=== PATIENT | male | born 1945 | race Caucasian/White ===

== ENCOUNTER 2017-11-06 15:09 | Emergency (ER) | payer MEDICARE, OTHER ==
[2017-11-06] MEDS ORDERED: BACIGUENT PACKET ONE (15:37)
[2017-11-06] MEDS ORDERED: XYLOCAINE 4% TOPICAL SOLUTION 50 ML TOP ONE (15:37)
[2017-11-06] MEDS ORDERED: ARZOL Silver Nitrate Applicator TP ONE ×2 (15:37→15:38)
[2017-11-06] MEDS ORDERED: NEOSYNEPHRINE 0.5% NASAL SPRAY/DROPS NS ONE (15:37)
[2017-11-06] MEDS ORDERED: NEOSYNEPHRINE 0.5% NASAL SPRAY/DROPS ONE (15:37)
[2017-11-06] MEDS ORDERED: XYLOCAINE 4% TOPICAL SOLUTION 50 ML ONE (15:40)
[2017-11-06] MEDS ORDERED: Sodium Chloride 0.9% 1000 ML 1,000 ML ONE (15:54)
[2017-11-06 16:02] LABS: BASOPHIL % 0.5 % (0.0-0.4); Basophil (Absolute #) 0.04 (0-0.4); Eosinophil % 2.1 % (0.00-5.0); Eosinophil (Absolute #) 0.17 (0-0.5); Granulocyte Absolute (ANC) 6.39 (1.4-6.9); Hematocrit 32.7 % (42-50); Hemoglobin 10.7 gm/dl (12.5-18.0); Lymphocyte (Absolute #) 1.02 (1.0-4.6); Lymphocytes % 12.6 % (24.0-44.0); Mean Cell Volume 99.7 fl (78-100); Mean Corpuscular Hemoglobin 32.6 pg (26-32); Mean Corpuscular Hgb Concent. 32.7 g/dl (32-36); Mean Platelet Volume 10.3 fl (6-9.5); Monocyte (Absolute #) 0.47 (0.0-1.3); Monocytes % 5.8 % (0.0-12.0); Platelet Count 290 K/mm3 (150-450); Red Blood Count 3.28 M/mm3 (4.1-5.6); Red Cell Distribution Width 13.3 % (11.5-14.0); White Blood Count 8.1 K/mm3 (4.0-10.5)
[2017-11-06 16:08] VITALS: O2SAT 98
[2017-11-06 16:16] LABS: ANION GAP 14.1 MEQ/L (5-15); Calcium 8.4 mg/dL (8.5-10.1); Carbon Dioxide 25.5 mEq/L (21-32); Creatinine 1 1.27 mg/dl (0.55-1.30); Potassium 4.7 mEq/L (3.5-5.1)
[2017-11-06 16:21] LABS: INR 1.18 (0.8-3.0)
[2017-11-06 16:23] LABS: PTT 28.5 SECONDS (24.1-36.1)
[2017-11-06 16:53] VITALS: BP 120/74; PULSE 66
--- NOTE | 2017-11-06 17:07 | ERPHSYRPT ---
- History of Present Illness Time Seen by Provider: 11/06/17 15:28 Source: patient, family () Patient Subjective Stated Complaint: nose bleed started at 1030 today. skin w/d , color normal, resp easy. states bleeding had stopped at one time and then started again. takes blood thinners at home Triage Nursing Assessment: arrives holding pressure to right side of nose. skin w/d, color normal, resp easy. steady small amt bleedign of nose noted from right nares. Physician History: CC: right nosebleed Hx: 72 y/o patient of Dr Gonsalez on plavix. He has right nostril nosebleed since 10:30 AM. No hx of this in the past. No injury. He could not get it to stop and it is going down back of his nose. No dizziness. No chest pain. Severity: moderate Allergies/Adverse Reactions: No Known Drug Allergies Allergy (Verified 11/06/17 16:08) Home Medications: Aspirin EC 325 mg [Ecotrin 325 MG] 81 mg PO DAILY 10/08/14 [History] Atorvastatin Calcium 20 mg PO DAILY 10/08/14 [History] Lisinopril [Zestril] 2.5 mg PO DAILY 10/08/14 [History] Clopidogrel Bisulfate 75 mg [PLAVIX 75 MG Tablet] 75 mg PO DAILY 11/06/17 [History] Hx Tetanus, Diphtheria Vaccination/Date Given: No Hx Influenza Vaccination/Date Given: Yes Hx Pneumococcal Vaccination/Date Given: No - Review of Systems Constitutional: No Symptoms Ears, Nose, & Throat: Epistaxis Respiratory: No Cough, No Dyspnea Abdominal/Gastrointestinal: No Vomiting, No Diarrhea Skin: No Rash Neurological: No Headache All Other Systems: Reviewed and Negative - Past Medical History Pertinent Past Medical History: Yes Neurological History: No Pertinent History ENT History: Other Cardiac History: Angina, Hypertension, Other Respiratory History: No Pertinent History Endocrine Medical History: No Pertinent History Musculoskeletal History: Arthritis GI Medical History: No Pertinent History History: No Pertinent History Psycho-Social History: No Pertinent History Male Reproductive Disorders: Prostate Problems Other Medical History: Menieres Disease. Enlarged prostate - Past Surgical History Past Surgical History: Yes Neuro Surgical History: No Pertinent History Cardiac: Cardiac Catheterization, Cardiac Stent Respiratory: No Pertinent History Gastrointestinal: No Pertinent History Genitourinary: No Pertinent History Musculoskeletal: No Pertinent History Male Surgical History: No Pertinent History Other Surgical History: Cardiac stents placed in 2002 - Social History Smoking Status: Never smoker Exposure to second hand smoke: No Drug Use: none Patient Lives Alone: No - Nursing Vital Signs Nursing Vital Signs: Initial Vital Signs Temperature 97.5 F 11/06/17 15:49 Pulse Rate 65 11/06/17 15:49 Respiratory Rate 18 11/06/17 15:49 Blood Pressure 121/78 11/06/17 15:49 O2 Sat by Pulse Oximetry 98 11/06/17 15:49 Pain Scale Pain Intensity 0 - Physical Exam General Appearance: alert Eye Exam: bilateral eye: PERRL, EOMI Neck Exam: normal inspection, non-tender, supple Cardiovascular/Respiratory Exam: normal breath sounds, regular rate/rhythm Neurologic Exam: alert, oriented x 3, 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 It was blown and suctioned. Neosynephrine and lidocaine applied topically with lambs wool. There was large clot in posterior which he coughed out. Residual bleeding. No anterior bleeding noted on direct visualization. 7.5cm AP rapid rhino inserted and balloon inflated. There was cessation of bleeding and no further blood down throat. Will release with nosebleed instr. - Course Nursing assessment & vital signs reviewed: Yes Ordered Tests: Active Orders 24 hr Category Date Time Status Epistaxis Set Up STAT Care 11/06/17 15:37 Active IV Insertion STAT Care 11/06/17 15:37 Active BMP Stat Lab 11/06/17 16:00 Completed CBC W DIFF Stat Lab 11/06/17 16:00 Completed PROTIME WITH INR Stat Lab 11/06/17 16:00 Completed PTT Stat Lab 11/06/17 16:00 Completed Medication Summary Discontinued Medications Generic Name Dose Route Start Last Admin Trade Name Freq PRN Reason Stop Dose Admin Bacitracin Confirm 11/06/17 15:37 Baciguent Packet Administered 11/06/17 15:38 Dose 1 gm .ROUTE .STK-MED ONE Sodium Chloride Confirm 11/06/17 15:54 Sodium Chloride 0.9% 1000 Ml Administered 11/06/17 15:55 Dose 1,000 mls @ ud .ROUTE .STK-MED ONE Lidocaine HCl 10 ml 11/06/17 15:37 11/06/17 16:17 Xylocaine 4% Topical Solution 50 Ml TOP 11/06/17 15:38 10 ml STAT ONE Administration Lidocaine HCl Confirm 11/06/17 15:40 Xylocaine 4% Topical Solution 50 Ml Administered 11/06/17 15:41 Dose 1 ml .ROUTE .STK-MED ONE Phenylephrine HCl 15 ml 11/06/17 15:37 11/06/17 16:16 Neosynephrine 0.5% Nasal [place]/Drops NS 11/06/17 15:38 15 ml STAT ONE Administration Phenylephrine HCl Confirm 11/06/17 15:37 Neosynephrine 0.5% Nasal [place]/Drops Administered 11/06/17 15:38 Dose 15 ml .ROUTE .STK-MED ONE Silver Nitrate 1 pkt 11/06/17 15:37 11/06/17 16:16 Arzol Silver Nitrate Applicator TP 11/06/17 15:38 Not Given STAT ONE Silver Nitrate Confirm 11/06/17 15:38 Arzol Silver Nitrate Applicator Administered 11/06/17 15:39 Dose 1 pkt TP .STK-MED ONE Lab/Rad Data: Laboratory Result Diagrams 11/06/17 16:00 11/06/17 16:00 Laboratory Results 11/06/17 11/06/17 11/06/17 Range/Units 16:00 16:00 16:00 WBC 8.1 (4.0-10.5) K/mm3 RBC 3.28 L (4.1-5.6) M/mm3 Hgb 10.7 L (12.5-18.0) gm/dl Hct 32.7 L (42-50) % MCV 99.7 (78-100) fl MCH 32.6 H (26-32) pg MCHC 32.7 (32-36) g/dl RDW 13.3 (11.5-14.0) % Plt Count 290 (150-450) K/mm3 MPV 10.3 H (6-9.5) fl Gran % 79.0 H (36.0-66.0) % Lymphocytes % 12.6 L (24.0-44.0) % Monocytes % 5.8 (0.0-12.0) % Eosinophils % 2.1 (0.00-5.0) % Basophils % 0.5 (0.0-0.4) % Basophils # 0.04 (0-0.4) INR 1.18 (0.8-3.0) APTT 28.5 (24.1-36.1) SECONDS Sodium 139 (136-145) mEq/L Potassium 4.7 (3.5-5.1) mEq/L Chloride 104 (98-107) mEq/L Carbon Dioxide 25.5 (21-32) mEq/L Anion Gap 14.1 (5-15) MEQ/L BUN 29 H (9-20) mg/dL Creatinine 1.27 (0.55-1.30) mg/dl Estimated GFR 59 ML/MIN Glucose 140 H (70-110) MG/DL Calcium 8.4 L (8.5-10.1) mg/dL - Departure Time of Disposition: 17:05 Departure Disposition: Home Clinical Impression: Posterior epistaxis Condition: Stable Critical Care Time: No Referrals: JAISON GONSALEZ MD [Primary Care Provider] - Instructions: Nosebleeds (DC) Additional Instructions: Call to see Dr Gonsalez or ENT or Sunday. Do not blow nose. Tylenol as directed for discomfort. Rx ceftin. Return for problems or concerns. Do not blow nose. Prescriptions: Cefuroxime Axetil 500 mg [Ceftin 500 mg] 1 tab PO BID #14 tablet
[2017-11-06 18:56] LABS: ABO TYPING O; RH TYPING POSITIVE
[2017-11-06 22:40] LABS: Antibody Screen POSITIVE (NEGATIVE)
== END 2017-11-06 17:13 | disposition home or self-care (01) ==
LOC: ED 15:09
DX: R04.0 Epistaxis (principal); I10 Essential (primary) hypertension; H81.09 Meniere's disease, unspecified ear; N40.0 Benign prostatic hyperplasia without lower urinary tract symptoms; Z79.899 Other long term (current) drug therapy
CPT/HCPCS: 36000; 36415; 80048; 85025; 85610; 85730; 86850; 86900; 86901; 99284; A9270-GY

== ENCOUNTER 2020-12-27 22:12 | Emergency (ER) | payer MEDICARE, OTHER ==
[2020-12-27] MEDS ORDERED: Zofran 4 MG/2 ML VIAL IV ONE (22:26)
[2020-12-27] MEDS ORDERED: Hydromorphone 1 mg/ml Injection IV ONE ×2 (22:26→23:11)
--- NOTE | 2020-12-27 22:26 | ERPHSYRPT ---
- History of Present Illness Time Seen by Provider: 12/27/20 22:25 Historian: patient, family Exam Limitations: clinical condition Physician History: This is a 75-year-old white male with a history of coronary artery disease, cardiac stents and pulmonary fibrosis who is experiencing right flank and right lower quadrant abdominal pain that began suddenly approximately 2 hours prior to arrival. Patient has never had a thing like this before. He is no longer on anticoagulation therapy. Patient is nauseated but has not had any vomiting. He has no diarrhea. He denies chest pain he denies shortness of breath. Patient has no known history of kidney stones or ureteral stones Timing/Duration: today, hour(s) (2 hours prior to arrival) Activities at Onset: none Quality: sharpness, stabbing Abdominal Pain Onset Location: flank (right) Pain Radiation: RLQ Severity of Pain-Max: moderate Severity of Pain-Current: moderate Modifying Factors: Improves With: nothing Associated Symptoms: denies symptoms Previous symptoms: no prior history Allergies/Adverse Reactions: No Known Drug Allergies Allergy (Verified 12/27/20 22:17) Home Medications: Atorvastatin Calcium 10 mg PO DAILY 10/08/14 [History] Albuterol Sulfate [Proair Respiclick] 90 mcg IH Q6H 12/27/20 [History] Aspirin 81 mg PO BID 12/27/20 [History] Furosemide [Lasix] 20 mg PO 12/27/20 [History] Nintedanib Esylate [Ofev] 150 mg PO DAILY 12/27/20 [History] Sacubitril/Valsartan [Entresto 49 mg-51 mg Tablet] 1 each PO BID 12/27/20 [History] predniSONE [Prednisone] 10 mg PO 12/27/20 [History] Hx Tetanus, Diphtheria Vaccination/Date Given: No Hx Influenza Vaccination/Date Given: Yes Hx Pneumococcal Vaccination/Date Given: No Travel Risk - International Travel Have you traveled outside of the country in past 3 weeks: No - Coronavirus Screening Are you exhibiting any of the following symptoms?: No Close contact with a COVID-19 positive Pt in past 14-21 Days: No - Vaccine Status Have you recieved a Covid-19 vaccination: No - Review of Systems Constitutional: No Symptoms Eyes: No Symptoms Ears, Nose, & Throat: No Symptoms Respiratory: No Symptoms Cardiac: No Symptoms Abdominal/Gastrointestinal: Abdominal Pain (rlq) Genitourinary Symptoms: Flank Pain (right) Musculoskeletal: No Symptoms Skin: No Symptoms Neurological: No Symptoms Psychological: No Symptoms Endocrine: No Symptoms Hematologic/Lymphatic: No Symptoms Immunological/Allergic: No Symptoms All Other Systems: Reviewed and Negative - Past Medical History Pertinent Past Medical History: Yes Neurological History: No Pertinent History ENT History: Other Cardiac History: Angina, Hypertension, Other Respiratory History: No Pertinent History Endocrine Medical History: No Pertinent History Musculoskeletal History: Arthritis GI Medical History: No Pertinent History History: No Pertinent History Psycho-Social History: No Pertinent History Male Reproductive Disorders: Prostate Problems Other Medical History: Menieres Disease. Enlarged prostate - Past Surgical History Past Surgical History: Yes Neuro Surgical History: No Pertinent History Cardiac: Cardiac Catheterization, Cardiac Stent Respiratory: No Pertinent History Gastrointestinal: No Pertinent History Genitourinary: No Pertinent History Musculoskeletal: No Pertinent History Male Surgical History: No Pertinent History Other Surgical History: Cardiac stents placed in 2001 - Social History Smoking Status: Never smoker Exposure to second hand smoke: No Drug Use: none Patient Lives Alone: No - Nursing Vital Signs Nursing Vital Signs: Initial Vital Signs Temperature 96.5 F 12/27/20 22:22 Pulse Rate 74 12/27/20 22:22 Respiratory Rate 26 H 12/27/20 22:22 Blood Pressure 144/85 12/27/20 22:22 O2 Sat by Pulse Oximetry 96 12/27/20 22:22 Pain Scale Pain Intensity 8 - Physical Exam General Appearance: moderate distress, alert, anxiety, thin Eye Exam: PERRL/EOMI, eyes nml inspection Ears, Nose, Throat Exam: normal ENT inspection, moist mucous membranes Neck Exam: normal inspection, non-tender, supple, full range of motion Respiratory Exam: normal breath sounds, lungs clear, airway intact, No chest tenderness, No respiratory distress Cardiovascular Exam: regular rate/rhythm, normal heart sounds, normal peripheral pulses Gastrointestinal/Abdomen Exam: soft, normal bowel sounds, tenderness, No rebound Rectal Exam: not done Back Exam: normal inspection, normal range of motion, CVA tenderness (right), No vertebral tenderness Extremity Exam: normal inspection, normal range of motion, pelvis stable Neurologic Exam: alert, oriented x 3, 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, 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, normal mood/affect, nml cerebellar function, nml station & gait, sensation nml Skin Exam: normal color, warm, dry Lymphatic Exam: No adenopathy SpO2 Interpretation: normal O2 Delivery: Room Air - Course Nursing assessment & vital signs reviewed: Yes Ordered Tests: Active Orders 24 hr Category Date Time Status Matt [Catheter-[place] Matt] STAT Care 12/27/20 22:47 Active IV Insertion STAT Care 12/27/20 22:26 Active ABDOMEN AND PELVIS W/0 CONTRAS [CT] Stat Exams 12/27/20 22:27 Taken AMYLASE Stat Lab 12/27/20 22:30 Completed CBC W DIFF Stat Lab 12/27/20 22:30 Completed CMP Stat Lab 12/27/20 22:30 Completed LIPASE Stat Lab 12/27/20 22:30 Completed Lactic Acid Stat Lab 12/27/20 22:26 Completed Lactic Acid Stat Lab 12/28/20 00:56 Completed UA W/RFX UR CULTURE Stat Lab 12/27/20 22:47 Completed Medication Summary Generic Name Dose Route Start Last Admin Trade Name Freq PRN Reason Stop Dose Admin Sodium Chloride 1,000 mls @ 200 mls/hr 12/27/20 22:30 12/28/20 00:12 Sodium Chloride 0.9% 1000 Ml IV 01/26/21 22:29 Infused .Q5H ABI Infusion Sodium Chloride 1,000 mls @ 100 mls/hr 12/28/20 00:45 12/28/20 00:40 Sodium Chloride 0.9% 1000 Ml IV 01/27/21 00:44 100 mls/hr .Q10H ABI Administration Discontinued Medications Generic Name Dose Route Start Last Admin Trade Name Freq PRN Reason Stop Dose Admin Hydromorphone HCl 1 mg 12/27/20 22:26 12/27/20 22:34 Hydromorphone 1 Mg/Ml Injection IV 12/27/20 22:27 1 mg STAT ONE Administration Hydromorphone HCl Confirm 12/27/20 22:29 Hydromorphone 1 Mg/Ml Injection Administered 12/27/20 22:30 Dose 1 mg .ROUTE .STK-MED ONE Hydromorphone HCl 0.5 mg 12/27/20 23:11 12/27/20 23:13 Hydromorphone 1 Mg/Ml Injection IV 12/27/20 23:12 0.5 mg STAT ONE Administration Hydromorphone HCl Confirm 12/27/20 23:12 Hydromorphone 1 Mg/Ml Injection Administered 12/27/20 23:13 Dose 1 mg .ROUTE .STK-MED ONE Hydromorphone HCl 0.5 mg 12/28/20 00:07 12/28/20 00:17 Hydromorphone 1 Mg/Ml Injection IV 12/28/20 00:08 0.5 mg STAT ONE Administration Hydromorphone HCl Confirm 12/28/20 00:10 Hydromorphone 1 Mg/Ml Injection Administered 12/28/20 00:11 Dose 1 mg .ROUTE .STK-MED ONE Piperacillin Sod/Tazobactam 100 mls @ 200 mls/hr 12/28/20 00:32 12/28/20 00:34 Sod 3.375 gm/ Sodium Chloride IV 12/28/20 01:01 200 mls/hr STAT ONE Administration Sodium Chloride Confirm 12/28/20 00:33 Sodium Chloride 100ml Mini-Bag Plus Administered 12/28/20 00:34 Dose 100 mls @ ud IV .STK-MED ONE Ketorolac Tromethamine 30 mg 12/27/20 23:17 12/27/20 23:21 Toradol 30 Mg Injection IV 12/27/20 23:18 30 mg STAT ONE Administration Ketorolac Tromethamine Confirm 12/27/20 23:20 Toradol 30 Mg Injection Administered 12/27/20 23:21 Dose 30 mg .ROUTE .STK-MED ONE Ondansetron HCl 4 mg 12/27/20 22:26 12/27/20 22:34 Zofran 4 Mg/2 Ml Vial IV 12/27/20 22:27 4 mg STAT ONE Administration Ondansetron HCl Confirm 12/27/20 22:29 Zofran 4 Mg/2 Ml Vial Administered 12/27/20 22:30 Dose 4 mg .ROUTE .STK-MED ONE Piperacillin Sod/Tazobactam Sod Confirm 12/28/20 00:33 Zosyn 3.375 Gm Vial Administered 12/28/20 00:34 Dose 3.375 gm IV .STK-MED ONE Lab/Rad Data: Laboratory Result Diagrams 12/27/20 22:30 12/27/20 22:30 Laboratory Results 04/12/27/20 12/27/20 Range/Units 00:56 22:47 22:30 WBC (4.0-10.5) K/mm3 RBC (4.1-5.6) M/mm3 Hgb (12.5-18.0) gm/dl Hct (42-50) % MCV (78-100) fl MCH (26-32) pg MCHC (32-36) g/dl RDW (11.5-14.0) % Plt Count (150-450) K/mm3 MPV (7.5-11.0) fl Gran % (36.0-66.0) % Eos # (Auto) (0-0.5) Absolute Lymphs (auto) (1.0-4.6) Absolute Monos (auto) (0.0-1.3) Lymphocytes % (24.0-44.0) % Monocytes % (0.0-12.0) % Eosinophils % (0.00-5.0) % Basophils % (0.0-0.4) % Absolute Granulocytes (1.4-6.9) Basophils # (0-0.4) Sodium 128 L (137-145) mmol/L Potassium 4.4 (3.5-5.1) mmol/L Chloride 91 L (98-107) mmol/L Carbon Dioxide 27 (22-30) mmol/L Anion Gap 13.9 (5-15) MEQ/L BUN 25 H (9-20) mg/dL Creatinine 1.06 (0.66-1.25) mg/dL Estimated GFR > 60.0 ML/MIN Glucose 172 H (74-106) mg/dL Lactic Acid 1.7 (0.4-2.0) Calcium 9.0 (8.4-10.2) mg/dL Total Bilirubin 0.60 (0.2-1.3) mg/dL AST 34 (17-59) U/L ALT 24 (0-50) U/L Alkaline Phosphatase 61 (38-126) U/L Serum Total Protein 7.3 (6.3-8.2) g/dL Albumin 4.2 (3.5-5.0) g/dL Amylase 151 H (30-110) U/L Lipase 308 H (23-300) U/L Urine Color YELLOW (YELLOW) Urine Appearance CLEAR (CLEAR) Urine pH 7.0 (5-6) Ur Specific [place] 1.014 (1.005-1.025) Urine Protein NEGATIVE (Negative) Urine Ketones NEGATIVE (NEGATIVE) Urine Blood NEGATIVE (0-5) Juan [place]/ul Urine Nitrite NEGATIVE (NEGATIVE) Urine Bilirubin NEGATIVE (NEGATIVE) Urine Urobilinogen NEGATIVE (0-1) mg/dL Ur Leukocyte Esterase NEGATIVE (NEGATIVE) Urine WBC (Auto) NONE (0-5) /HPF Urine RBC (Auto) NONE (0-2) /HPF U Hyaline Cast (Auto) 0-2 (0-2) /LPF U Epithel Cells (Auto) NONE (FEW) /HPF Urine Bacteria (Auto) NONE (NEGATIVE) /HPF Urine Culture Reflexed NO (NO) Urine Glucose NEGATIVE (NEGATIVE) mg/dL 12/27/20 12/27/20 Range/Units 22:30 22:26 WBC 10.9 H (4.0-10.5) K/mm3 RBC 4.64 (4.1-5.6) M/mm3 Hgb 15.7 (12.5-18.0) gm/dl Hct 46.2 (42-50) % MCV 99.6 (78-100) fl MCH 33.8 H (26-32) pg MCHC 34.0 (32-36) g/dl RDW 13.1 (11.5-14.0) % Plt Count 251 (150-450) K/mm3 MPV 9.7 (7.5-11.0) fl Gran % 80.7 H (36.0-66.0) % Eos # (Auto) 0 (0-0.5) Absolute Lymphs (auto) 1.27 (1.0-4.6) Absolute Monos (auto) 0.80 (0.0-1.3) Lymphocytes % 11.7 L (24.0-44.0) % Monocytes % 7.4 (0.0-12.0) % Eosinophils % 0.0 (0.00-5.0) % Basophils % 0.2 (0.0-0.4) % Absolute Granulocytes 8.76 H (1.4-6.9) Basophils # 0.02 (0-0.4) Sodium (137-145) mmol/L Potassium (3.5-5.1) mmol/L Chloride (98-107) mmol/L Carbon Dioxide (22-30) mmol/L Anion Gap (5-15) MEQ/L BUN (9-20) mg/dL Creatinine (0.66-1.25) mg/dL Estimated GFR ML/MIN Glucose (74-106) mg/dL Lactic Acid 3.9 H (0.4-2.0) Calcium (8.4-10.2) mg/dL Total Bilirubin (0.2-1.3) mg/dL AST (17-59) U/L ALT (0-50) U/L Alkaline Phosphatase (38-126) U/L Serum Total Protein (6.3-8.2) g/dL Albumin (3.5-5.0) g/dL Amylase (30-110) U/L Lipase (23-300) U/L Urine Color (YELLOW) Urine Appearance (CLEAR) Urine pH (5-6) Ur Specific [place] (1.005-1.025) Urine Protein (Negative) Urine Ketones (NEGATIVE) Urine Blood (0-5) Juan J/ul Urine Nitrite (NEGATIVE) Urine Bilirubin (NEGATIVE) Urine Urobilinogen (0-1) mg/dL Ur Leukocyte Esterase (NEGATIVE) Urine WBC (Auto) (0-5) /HPF Urine RBC (Auto) (0-2) /HPF U Hyaline Cast (Auto) (0-2) /LPF U Epithel Cells (Auto) (FEW) /HPF Urine Bacteria (Auto) (NEGATIVE) /HPF Urine Culture Reflexed (NO) Urine Glucose (NEGATIVE) mg/dL - Progress Progress: improved, pain not gone completely Progress Note: 12/28/20 01:05 Medical decision making: This patient has an acute surgical abdomen. CAT scan of the abdomen pelvis without contrast shows a mid jejunal volvulus or possible internal hernia. At the time of the CAT scan there does not appear to have a complete obstruction. Early ischemia of the bowel cannot be ruled out. There is no obvious infarct of bowel. There is mesenteric congestion at the level of jejunal loops. I initially spoke with Dr. Eladio Burt, general surgeon here at [facility]. He declines admission and intervention of this patient. He and I both feel that the patient would be best served at a tertiary facility where surgical intervention can occur emergently and there is postoperative intensive care unit monitoring and cardiac and retail support specialist present. I then spoke with Dr. Schneider, the emergency room physician at [facility] in [facility]. After I reviewed the patient work-up results with him and after Dr. Sparrow, general surgeon was consulted by phone, the patient was accepted for emergent transfer to [facility] in [facility]. The patient and spouse were informed of this plan and they agreed to it. Counseled pt/family regarding: lab results, diagnosis, rad results - Departure Departure Disposition: Transfer Clinical Impression: Volvulus of jejunum, Acute intestinal ischemic syndrome Condition: Fair Critical Care Time: Yes Critical Care Time(excluding separately billable procedures): Critical 30-74 mins Referrals: JAISON GONSALEZ MD [Primary Care Provider] -
[2020-12-27] MEDS ORDERED: Hydromorphone 1 mg/ml Injection ONE ×2 (22:29→23:12)
[2020-12-27] MEDS ORDERED: Sodium Chloride 0.9% 1000 ML 1,000 ML ONE (22:29)
[2020-12-27] MEDS ORDERED: Zofran 4 MG/2 ML VIAL ONE (22:29)
[2020-12-27] MEDS ORDERED: Sodium Chloride 0.9% 1000 ML 1,000 ML IV SCH (22:30)
[2020-12-27 22:41] LABS: Absolute Neutrophil Ct (ANC) 8.76 (1.4-6.9); BASOPHIL % 0.2 % (0.0-0.4); Basophil (Absolute #) 0.02 (0-0.4); Eosinophil (Absolute #) 0 (0-0.5); Hematocrit 46.2 % (42-50); Hemoglobin 15.7 gm/dl (12.5-18.0); Lymphocyte (Absolute #) 1.27 (1.0-4.6); Lymphocytes % 11.7 % (24.0-44.0); Mean Cell Volume 99.6 fl (78-100); Mean Corpuscular Hemoglobin 33.8 pg (26-32); Mean Platelet Volume 9.7 fl (7.5-11.0); Monocytes % 7.4 % (0.0-12.0); Neutrophil % 80.7 % (36.0-66.0); Platelet Count 251 K/mm3 (150-450); Red Blood Count 4.64 M/mm3 (4.1-5.6); Red Cell Distribution Width 13.1 % (11.5-14.0); White Blood Count 10.9 K/mm3 (4.0-10.5)
[2020-12-27 22:52] LABS: ALBUMIN 4.2 g/dL (3.5-5.0); ALKALINE PHOSPHATASE 61 U/L (38-126); AMYLASE 151 U/L (30-110); ANION GAP 13.9 MEQ/L (5-15); BLOOD UREA NITROGEN 25 mg/dL (9-20); CHLORIDE 91 mmol/L (98-107); Carbon Dioxide 27 mmol/L (22-30); Creatinine 1 1.06 mg/dL (0.66-1.25); EST GLOMERULAR FILTRATION RATE > 60.0 ML/MIN; Glucose 172 mg/dL (74-106); LIPASE 308 U/L (23-300); Potassium 4.4 mmol/L (3.5-5.1); SGOT/AST 34 U/L (17-59); SGPT/ALT 24 U/L (0-50); SODIUM 128 mmol/L (137-145); Total Protein 7.3 g/dL (6.3-8.2)
[2020-12-27 22:58] LABS: Appearance CLEAR (CLEAR); Bilirubin NEGATIVE (NEGATIVE); Blood NEGATIVE Ery/ul (0-5); Glucose NEGATIVE (NEGATIVE); Hyaline Casts 0-2 /LPF (0-2); Ketones NEGATIVE (NEGATIVE); Leukocyte Esterase NEGATIVE (NEGATIVE); Nitrite NEGATIVE (NEGATIVE); Protein,Urine Dip NEGATIVE (Negative); Specific Gravity 1.014 (1.005-1.025); Urobilinogen NEGATIVE mg/dL (0-1)
[2020-12-27] MEDS ORDERED: TORAdol 30 mg Injection IV ONE (23:17)
[2020-12-27] MEDS ORDERED: TORAdol 30 mg Injection ONE (23:20)
[2020-12-28] MEDS ORDERED: Hydromorphone 1 mg/ml Injection IV ONE ×3 (00:07→01:06)
[2020-12-28] MEDS ORDERED: Hydromorphone 1 mg/ml Injection ONE ×2 (00:10→01:07)
[2020-12-28] MEDS ORDERED: Zosyn 3.375 GM Vial 3.375 GM in Sodium Chloride 100ML MINI-BAG PLUS 100 ML IV ONE (00:32)
[2020-12-28] MEDS ORDERED: Sodium Chloride 100ML MINI-BAG PLUS 100 ML IV ONE (00:33)
[2020-12-28] MEDS ORDERED: Zosyn 3.375 GM Vial IV ONE (00:33)
[2020-12-28] MEDS ORDERED: Sodium Chloride 0.9% 1000 ML 1,000 ML ONE (00:38)
[2020-12-28] MEDS ORDERED: Sodium Chloride 0.9% 1000 ML 1,000 ML IV SCH (00:45)
[2020-12-28 01:04] VITALS: BP 126/76; PULSE 73; O2SAT 98
--- NOTE | 2020-12-28 08:58 | XRAY ---
Indication: Right flank/right lower quadrant pain. Multiple contiguous axial images obtained through the abdomen and pelvis without contrast. Comparison: None. Patient's arms produces mild beam artifact. Lung bases demonstrate extensive fibrosis without focal infiltrate or effusion. Heart is not enlarged. Stomach is distended with air/fluid. There is malrotation of the jejunal seen in the right upper quadrant with associated mild bowel wall thickening and moderate mesenteric stranding/edema concerning for volvulus versus internal hernia. No pneumatosis intestinalis or portal air. Tiny pelvic free fluid but no walled off fluid or free air. Remaining distal small bowel loops and colon appear nonobstructed. Diffuse scattered colonic diverticulosis. Urinary bladder is near empty with Matt balloon catheter in situ. There are scattered hepatic/splenic calcified granulomas. Remaining liver, gallbladder, pancreas, spleen, adrenal glands, kidneys, and ureters are unremarkable for noncontrast exam. Mild scattered aortoiliac calcifications without AAA. Osseous structures demonstrates osteopenia, degenerative changes throughout the thoracolumbar spine, and mild degenerative changes of both hips. No ventral or inguinal hernias. Impression: 1. 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 Rule out volvulus versus internal hernia. Less likely bowel ischemia. 2. Diffuse colonic diverticulosis and diffuse pulmonary fibrosis. 3. Incidental Matt catheter in situ and chronic bony findings. Comment: Preliminary interpretation was made by C. No critical discrepancy.
== END 2020-12-28 01:30 | disposition short-term general hospital (02) ==
LOC: ED 22:12
DX: K55.8 Other vascular disorders of intestine (principal)
CPT/HCPCS: 36000; 36415; 51702; 74176; 80053; 81001; 82150; 83605; 83690; 85025; 96360; 96374; 96375; 96376; 99285; 99291; J1170; J1885; J2405

== ENCOUNTER 2021-01-15 09:20 | Emergency (ER) | payer MEDICARE, OTHER ==
[2021-01-15] MEDS ORDERED: Zofran 4 MG/2 ML VIAL IV ONE (09:59)
[2021-01-15] MEDS ORDERED: Hydromorphone 1 mg/ml Injection IV ONE ×2 (09:59→13:19)
[2021-01-15] MEDS ORDERED: Sodium Chloride 0.9% 1000 ML 1,000 ML IV STA (09:59)
[2021-01-15] MEDS ORDERED: Hydromorphone 1 mg/ml Injection ONE ×2 (10:57→13:22)
[2021-01-15] MEDS ORDERED: Zofran 4 MG/2 ML VIAL ONE (10:57)
[2021-01-15] MEDS ORDERED: Sodium Chloride 0.9% 1000 ML 1,000 ML ONE (10:58)
--- NOTE | 2021-01-15 11:06 | ERPHSYRPT ---
- History of Present Illness Time Seen by Provider: 01/15/21 09:40 Historian: patient, family Exam Limitations: no limitations Patient Subjective Stated Complaint: PT states "Dr. Sparrow did abdominal surgery on me for a bowel obstruction on december 28. I started to cramp this morning around 4 am and it just hurts." Triage Nursing Assessment: Pt presented alert and oriented X 3, skin pwd Pt ambulates with a slow gait, pt has abdominal binder on. pt will grunt and groan occasionally. Physician History: This is a 75-year-old white male has a history of hypertension, coronary artery disease, cardiac stents and pulmonary fibrosis. Patient was seen by me on 12/28/2020 for significant abdominal pain. He was sent emergently to [facility] in [facility] and operated on by Dr. Sparrow for what the patient states is a bowel obstruction. Patient was discharged to home on 01/09/2021 from that hospitalization. He has not needed to use oral narcotic pain medicine or antiemetics. He has been on anticoagulation injections daily at home. This morning, approximately 4 AM he he began experiencing abdominal cramping similar to his bowel obstruction but not as painful or intense. He has had no vomiting. He had a normal bowel movement yesterday. He is passing flatus. He has no diarrhea. He denies chest pain. He denies shortness of breath. Timing/Duration: today Activities at Onset: none Quality: cramping Abdominal Pain Onset Location: generalized abdomen Pain Radiation: no radiation Severity of Pain-Max: moderate Severity of Pain-Current: moderate Modifying Factors: Improves With: nothing Associated Symptoms: denies symptoms Previous symptoms: same symptoms as today, recently seen, recent hospitalization, recently treated Allergies/Adverse Reactions: No Known Drug Allergies Allergy (Verified 12/27/20 22:17) Home Medications: Atorvastatin Calcium 10 mg PO DAILY 10/08/14 [History] Albuterol Sulfate [Proair Respiclick] 90 mcg IH Q6H 12/27/20 [History] Furosemide [Lasix] 20 mg PO DAILY 12/27/20 [History] Nintedanib Esylate [Ofev] 150 mg PO DAILY 12/27/20 [History] Sacubitril/Valsartan [Entresto 49 mg-51 mg Tablet] 1 each PO BID 12/27/20 [History] predniSONE [Prednisone] 10 mg PO DAILY 12/27/20 [History] Enoxaparin Sodium [Lovenox] 30 mg SQ BID 01/15/21 [History] Ondansetron [Ondansetron Odt] 4 mg PO DAILY 01/15/21 [History] PANTOPRAZOLE 40 mg Tablet [Protonix 40MG Tablet] 40 mg PO DAILY 01/15/21 [History] Hx Tetanus, Diphtheria Vaccination/Date Given: No Hx Influenza Vaccination/Date Given: Yes Hx Pneumococcal Vaccination/Date Given: Yes Immunizations Up to Date: Yes Travel Risk - International Travel Have you traveled outside of the country in past 3 weeks: No - Coronavirus Screening Are you exhibiting any of the following symptoms?: No Close contact with a COVID-19 positive Pt in past 14-21 Days: No - Vaccine Status Have you recieved a Covid-19 vaccination: No [employer] 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: [employer] - Vaccination Dates Date of 2cond Vaccination (if applicable): n/a Comment: pt choice not to receive second shot - Review of Systems Constitutional: No Symptoms Eyes: No Symptoms Ears, Nose, & Throat: No Symptoms Respiratory: No Symptoms Cardiac: No Symptoms Abdominal/Gastrointestinal: Abdominal Pain Genitourinary Symptoms: No Symptoms Musculoskeletal: No Symptoms Skin: No Symptoms Neurological: No Symptoms Psychological: No Symptoms Endocrine: No Symptoms Hematologic/Lymphatic: No Symptoms Immunological/Allergic: No Symptoms All Other Systems: Reviewed and Negative - Past Medical History Pertinent Past Medical History: Yes Neurological History: No Pertinent History ENT History: Other Cardiac History: Angina, Hypertension, Other Respiratory History: No Pertinent History Endocrine Medical History: No Pertinent History Musculoskeletal History: Arthritis GI Medical History: No Pertinent History History: No Pertinent History Psycho-Social History: No Pertinent History Male Reproductive Disorders: Prostate Problems Other Medical History: Menieres Disease. Enlarged prostate - Past Surgical History Past Surgical History: Yes Neuro Surgical History: No Pertinent History Cardiac: Cardiac Catheterization, Cardiac Stent Respiratory: No Pertinent History Gastrointestinal: No Pertinent History Genitourinary: No Pertinent History Musculoskeletal: No Pertinent History Male Surgical History: No Pertinent History Other Surgical History: Cardiac stents placed in 2001. abdomen - Social History Smoking Status: Never smoker Exposure to second hand smoke: No Drug Use: none Patient Lives Alone: No - Nursing Vital Signs Nursing Vital Signs: Initial Vital Signs Temperature 97.8 F 01/15/21 09:33 Pulse Rate 80 01/15/21 09:33 Respiratory Rate 20 01/15/21 09:33 Blood Pressure 123/76 01/15/21 09:33 O2 Sat by Pulse Oximetry 99 01/15/21 09:33 Pain Scale Pain Intensity 5 - Physical Exam General Appearance: moderate distress, alert, anxiety Eye Exam: PERRL/EOMI, eyes nml inspection Ears, Nose, Throat Exam: normal ENT inspection, moist mucous membranes Neck Exam: normal inspection, non-tender, supple, full range of motion Respiratory Exam: normal breath sounds, lungs clear, airway intact, No chest tenderness, No respiratory distress Cardiovascular Exam: regular rate/rhythm, normal heart sounds, normal peripheral pulses Gastrointestinal/Abdomen Exam: soft, normal bowel sounds, tenderness (Generalized. No localized pain), guarding, No rebound Rectal Exam: not done Back Exam: normal inspection, normal range of motion, No CVA tenderness, No vertebral tenderness Extremity Exam: normal inspection, normal range of motion, pelvis stable Neurologic Exam: alert, oriented x 3, cooperative, couturiere II-XII nml as tested, normal mood/affect, nml cerebellar function, nml station & gait, sensation nml Skin Exam: normal color, warm, dry Lymphatic Exam: No adenopathy SpO2 Interpretation: normal SpO2: 99 O2 Delivery: Room Air - Course Nursing assessment & vital signs reviewed: Yes Ordered Tests: Active Orders 24 hr Category Date Time Status IV Insertion STAT Care 01/15/21 09:59 Active ABDOMEN AND PELVIS W/0 CONTRAS [CT] Stat Exams 01/15/21 10:00 Taken AMYLASE Stat Lab 01/15/21 10:25 Completed CBC W DIFF Stat Lab 01/15/21 10:25 Completed CMP Stat Lab 01/15/21 10:25 Completed LIPASE Stat Lab 01/15/21 10:25 Completed Lactic Acid Stat Lab 01/15/21 10:58 Completed UA W/RFX UR CULTURE Stat Lab 01/15/21 09:59 Ordered Medication Summary Discontinued Medications Generic Name Dose Route Start Last Admin Trade Name Freq PRN Reason Stop Dose Admin Hydromorphone HCl 0.5 mg 01/15/21 09:59 01/15/21 11:06 Hydromorphone 1 Mg/Ml Injection IV 01/15/21 10:00 0.5 mg STAT ONE Administration Hydromorphone HCl Confirm 01/15/21 10:57 Hydromorphone 1 Mg/Ml Injection Administered 01/15/21 10:58 Dose 1 mg .ROUTE .STK-MED ONE Sodium Chloride 1,000 mls @ 999 mls/hr 01/15/21 09:59 01/15/21 12:09 Sodium Chloride 0.9% 1000 Ml IV 01/15/21 10:59 Infused .Q1H1M STA Infusion Sodium Chloride Confirm 01/15/21 10:58 Sodium Chloride 0.9% 1000 Ml Administered 01/15/21 10:59 Dose 1,000 mls @ ud .ROUTE .STK-MED ONE Ondansetron HCl 4 mg 01/15/21 09:59 01/15/21 11:06 Zofran 4 Mg/2 Ml Vial IV 01/15/21 10:00 4 mg STAT ONE Administration Ondansetron HCl Confirm 01/15/21 10:57 Zofran 4 Mg/2 Ml Vial Administered 01/15/21 10:58 Dose 4 mg .ROUTE .STK-MED ONE Lab/Rad Data: Laboratory Result Diagrams 01/15/21 10:25 01/15/21 10:25 Laboratory Results 01/15/21 01/15/21 01/15/21 Range/Units 10:58 10:25 10:25 WBC 5.8 (4.0-10.5) K/mm3 RBC 3.95 L (4.1-5.6) M/mm3 Hgb 12.8 (12.5-18.0) gm/dl Hct 41.1 L (42-50) % MCV 104.1 H (78-100) fl MCH 32.4 H (26-32) pg MCHC 31.1 L (32-36) g/dl RDW 12.7 (11.5-14.0) % Plt Count 373 (150-450) K/mm3 MPV 10.4 (7.5-11.0) fl Gran % 76.3 H (36.0-66.0) % Eos # (Auto) 0.09 (0-0.5) Absolute Lymphs (auto) 0.64 L (1.0-4.6) Absolute Monos (auto) 0.62 (0.0-1.3) Lymphocytes % 11.1 L (24.0-44.0) % Monocytes % 10.7 (0.0-12.0) % Eosinophils % 1.6 (0.00-5.0) % Basophils % 0.3 (0.0-0.4) % Absolute Granulocytes 4.42 (1.4-6.9) Basophils # 0.02 (0-0.4) Sodium 133 L (137-145) mmol/L Potassium 4.9 (3.5-5.1) mmol/L Chloride 94 L (98-107) mmol/L Carbon Dioxide 35 H (22-30) mmol/L Anion Gap 8.9 (5-15) MEQ/L BUN 19 (9-20) mg/dL Creatinine 1.20 (0.66-1.25) mg/dL Estimated GFR > 60.0 ML/MIN Glucose 121 H (74-106) mg/dL Lactic Acid 1.4 (0.4-2.0) Calcium 9.1 (8.4-10.2) mg/dL Total Bilirubin 0.40 (0.2-1.3) mg/dL AST 24 (17-59) U/L ALT 24 (0-50) U/L Alkaline Phosphatase 62 (38-126) U/L Serum Total Protein 6.6 (6.3-8.2) g/dL Albumin 3.6 (3.5-5.0) g/dL Amylase 64 (30-110) U/L Lipase 27 (23-300) U/L - Progress Progress: pain not gone completely, re-examined Progress Note: 01/15/21 12:38 CAT scan of the abdomen pelvis without contrast shows 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 There is interval improvement in the mesenteric edema. There is no significant distention of the large or small bowel. Medical decision making: This patient had a recent exploratory laparotomy with adhesiolysis and small bowel resection and primary anastomosis. He is back into the emergency room today with significant abdominal cramping. Although the p atient is afebrile, his lactic acid is normal, his white blood cell count is normal and there is some evidence of improvement on the CAT scan of the abdomen pelvis, clinically, the patient is having significant abdominal cramping of sudden onset which he did not have several days after his surgery on 12/28/2020. This cramping pain has been persistent since the onset of pain at 4 AM this morning. I spoke with Dr. Sparrow at [facility]. This was his surgeon. She agrees that the patient would be best served with inpatient management. I spoke with the patient and his spouse. They agree. Counseled pt/family regarding: lab results, diagnosis, need for follow-up, rad results - Departure Departure Disposition: Home Clinical Impression: Intractable abdominal pain Condition: Stable Critical Care Time: No Referrals: JAISON GONSALEZ MD [Primary Care Provider] -
[2021-01-15 11:07] LABS: Absolute Neutrophil Ct (ANC) 4.42 (1.4-6.9); BASOPHIL % 0.3 % (0.0-0.4); Basophil (Absolute #) 0.02 (0-0.4); Eosinophil % 1.6 % (0.00-5.0); Eosinophil (Absolute #) 0.09 (0-0.5); Hematocrit 41.1 % (42-50); Hemoglobin 12.8 gm/dl (12.5-18.0); Lymphocyte (Absolute #) 0.64 (1.0-4.6); Lymphocytes % 11.1 % (24.0-44.0); Mean Cell Volume 104.1 fl (78-100); Mean Corpuscular Hemoglobin 32.4 pg (26-32); Mean Corpuscular Hgb Concent. 31.1 g/dl (32-36); Mean Platelet Volume 10.4 fl (7.5-11.0); Monocyte (Absolute #) 0.62 (0.0-1.3); Monocytes % 10.7 % (0.0-12.0); Neutrophil % 76.3 % (36.0-66.0); Platelet Count 373 K/mm3 (150-450); Red Blood Count 3.95 M/mm3 (4.1-5.6); Red Cell Distribution Width 12.7 % (11.5-14.0); White Blood Count 5.8 K/mm3 (4.0-10.5)
[2021-01-15 11:20] LABS: ALBUMIN 3.6 g/dL (3.5-5.0); ALKALINE PHOSPHATASE 62 U/L (38-126); AMYLASE 64 U/L (30-110); ANION GAP 8.9 MEQ/L (5-15); BLOOD UREA NITROGEN 19 mg/dL (9-20); CHLORIDE 94 mmol/L (98-107); Calcium 9.1 mg/dL (8.4-10.2); Carbon Dioxide 35 mmol/L (22-30); EST GLOMERULAR FILTRATION RATE > 60.0 ML/MIN; Glucose 121 mg/dL (74-106); LIPASE 27 U/L (23-300); Potassium 4.9 mmol/L (3.5-5.1); SGOT/AST 24 U/L (17-59); SGPT/ALT 24 U/L (0-50); SODIUM 133 mmol/L (137-145); Total Protein 6.6 g/dL (6.3-8.2)
[2021-01-15 12:24] VITALS: BP 120/75; PULSE 69
[2021-01-15 12:43] VITALS: O2SAT 99
--- NOTE | 2021-01-15 20:28 | XRAY ---
Indication: Postop abdomen pain. Multiple contiguous axial images obtained through the abdomen and pelvis without contrast. Comparison: December 27, 2020. Lung bases again demonstrates extensive fibrosis/scarring without focal infiltrate or effusion. Heart not enlarged. New small hiatal hernia. Noncontrasted stomach and bowel loops appear nonobstructed today again with jejunum in the right midabdomen. New left midabdomen small bowel anastomosis without free fluid/air. Diminished mesenteric stranding/edema. Stable scattered colonic diverticulosis. Matt catheter has been removed in the interim. Remaining liver, gallbladder, pancreas, spleen, adrenal glands, kidneys, ureters, and bladder are unremarkable for noncontrast exam. Stable mild aortoiliac calcifications without AAA. Impression: 1. 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 2. New intact left midabdomen small bowel anastomosis with diminished mesenteric stranding/edema. 3. New small hiatal hernia. 4. Stable colonic diverticulosis and diffuse pulmonary fibrosis/scarring. Comment: Preliminary interpretation was made by [facility]. No critical discrepancy.
== END 2021-01-15 13:32 | disposition short-term general hospital (02) ==
LOC: ED 09:20
DX: R10.9 Unspecified abdominal pain (principal); I10 Essential (primary) hypertension; I25.10 Atherosclerotic heart disease of native coronary artery without angina pectoris; Z79.899 Other long term (current) drug therapy; N40.0 Benign prostatic hyperplasia without lower urinary tract symptoms
CPT/HCPCS: 36415; 74176; 80053; 82150; 83605; 83690; 85025; 96360; 96374; 96375; 96376; 99285; J1170; J2405

== ENCOUNTER 2021-01-19 16:41 | Emergency (ER) | payer MEDICARE, OTHER ==
[2021-01-19] MEDS ORDERED: Sodium Chloride 0.9% 1000 ML 1,000 ML ONE (17:43)
[2021-01-19] MEDS ORDERED: Sodium Chloride 0.9% 1000 ML 1,000 ML IV SCH (17:45)
[2021-01-19] MEDS ORDERED: ZOFRAN ODT 4 MG ONE (18:05)
[2021-01-19] MEDS ORDERED: ZOFRAN ODT 4 MG PO ONE (18:07)
[2021-01-19 18:24] LABS: Absolute Neutrophil Ct (ANC) 5.43 (1.4-6.9); BASOPHIL % 0.2 % (0.0-0.4); Basophil (Absolute #) 0.01 (0-0.4); Eosinophil % 0.2 % (0.00-5.0); Eosinophil (Absolute #) 0.01 (0-0.5); Hematocrit 38.4 % (42-50); Hemoglobin 12.1 gm/dl (12.5-18.0); Lymphocyte (Absolute #) 0.29 (1.0-4.6); Lymphocytes % 4.8 % (24.0-44.0); Mean Cell Volume 104.1 fl (78-100); Mean Corpuscular Hemoglobin 32.8 pg (26-32); Mean Corpuscular Hgb Concent. 31.5 g/dl (32-36); Mean Platelet Volume 11.4 fl (7.5-11.0); Monocyte (Absolute #) 0.25 (0.0-1.3); Monocytes % 4.2 % (0.0-12.0); Neutrophil % 90.6 % (36.0-66.0); Platelet Count 291 K/mm3 (150-450); Red Blood Count 3.69 M/mm3 (4.1-5.6); Red Cell Distribution Width 12.6 % (11.5-14.0)
[2021-01-19 18:36] LABS: ALBUMIN 3.6 g/dL (3.5-5.0); ALKALINE PHOSPHATASE 69 U/L (38-126); ANION GAP 9.4 MEQ/L (5-15); BLOOD UREA NITROGEN 13 mg/dL (9-20); CHLORIDE 91 mmol/L (98-107); Calcium 8.9 mg/dL (8.4-10.2); Carbon Dioxide 35 mmol/L (22-30); Creatinine 1 0.97 mg/dL (0.66-1.25); EST GLOMERULAR FILTRATION RATE > 60.0 ML/MIN; Glucose 142 mg/dL (74-106); LIPASE 22 U/L (23-300); Potassium 4.8 mmol/L (3.5-5.1); SGOT/AST 24 U/L (17-59); SGPT/ALT 19 U/L (0-50); SODIUM 130 mmol/L (137-145); Total Protein 6.6 g/dL (6.3-8.2)
--- NOTE | 2021-01-19 18:54 | ERPHSYRPT ---
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 pt states took motrin last night and was able to tolerate states took motrin and tylenol today with no relief. pt had bowel resection 2 weeks ago and [facility] they were unable to find a cause. pt has oxycodone at home though did not take dt states it does not help. Triage Nursing Assessment: to er c/o abd and back pain following bowel resection pt reports regular bowel movements and nausea present though denies vomiting. pt arrives pale w/d resp easy though grunting present pt reports normal for him. Pt has incision noted mid abd healing with michael out and purple and yellow bruising noted to frances lq adb Physician History: Patient is a 75-year-old male presents to our ED with complaints of mid abdominal pain radiating to both flanks and upper chest. Patient states pain also radiates to his back. Pain described as a sharp intermittent pain. Patient took Tylenol and Motrin for pain control. However does not help his symptoms. Patient has a history of bowel resection in December 2020. Patient had a short rehab stay in the hospital as well. After discharge patient redeveloped abdominal pain. Patient was readmitted for his pain. Patient was discharged. Patient is back again for the same. No trauma. No fever. No diarrhea. No rash. Symptoms are mild to moderate in intensity. No specific worsening improving factors. Patient voices no other complaints or concerns at this time. Timing/Duration: today Activities at Onset: none Quality: sharpness Abdominal Pain Onset Location: generalized abdomen Pain Radiation: chest, back Severity of Pain-Max: moderate Severity of Pain-Current: mild Modifying Factors: Improves With: nothing Associated Symptoms: denies symptoms, No diarrhea, No nausea, No vomiting, No weakness Allergies/Adverse Reactions: No Known Drug Allergies Allergy (Verified 12/27/20 22:17) Home Medications: Albuterol Sulfate [Proair Respiclick] 90 mcg IH Q6H 12/27/20 [History] Furosemide [Lasix] 20 mg PO DAILY 12/27/20 [History] Sacubitril/Valsartan [Entresto 49 mg-51 mg Tablet] 1 each PO BID 12/27/20 [History] predniSONE [Prednisone] 10 mg PO DAILY 12/27/20 [History] PANTOPRAZOLE 40 mg Tablet [Protonix 40MG Tablet] 40 mg PO DAILY 01/15/21 [History] Bisacodyl [Dulcolax] 10 mg RC DAILY PRN PRN 01/19/21 [History] Oxycodone HCl 5 mg PO BID PRN 01/19/21 [History] Potassium Chloride 20 meq PO DAILY 01/19/21 [History] Hx Tetanus, Diphtheria Vaccination/Date Given: No Hx Influenza Vaccination/Date Given: Yes Hx Pneumococcal Vaccination/Date Given: Yes Travel Risk - International Travel Have you traveled outside of the country in past 3 weeks: No - Coronavirus Screening Are you exhibiting any of the following symptoms?: No Close contact with a COVID-19 positive Pt in past 14-21 Days: No - Vaccine Status Have you recieved a Covid-19 vaccination: Yes [employer]: [employer] - Vaccination Dates Date of 2cond Vaccination (if applicable): has not recieved - Review of Systems Constitutional: No Symptoms, No Fever, No Chills Eyes: No Symptoms Ears, Nose, & Throat: No Symptoms Respiratory: No Symptoms, No Cough, No Dyspnea Cardiac: No Symptoms, No Chest Pain, No Edema, No Syncope Abdominal/Gastrointestinal: No Symptoms, No Abdominal Pain, No Nausea, No Vomiting, No Diarrhea Genitourinary Symptoms: No Symptoms, No Dysuria Musculoskeletal: No Symptoms, No Back Pain, No Neck Pain Skin: No Symptoms, No Rash Neurological: No Symptoms, No Dizziness, No Focal Weakness, No Sensory Changes Psychological: No Symptoms Endocrine: No Symptoms Hematologic/Lymphatic: No Symptoms Immunological/Allergic: No Symptoms All Other Systems: Reviewed and Negative - Past Medical History Pertinent Past Medical History: Yes Neurological History: No Pertinent History ENT History: Other Cardiac History: Angina, Congestive Heart Failure, Hypertension, Other Respiratory History: No Pertinent History Endocrine Medical History: No Pertinent History Musculoskeletal History: Arthritis GI Medical History: No Pertinent History History: No Pertinent History Psycho-Social History: No Pertinent History Male Reproductive Disorders: Prostate Problems Other Medical History: Menieres Disease. Enlarged prostate. pulmonary fibrosis - Past Surgical History Past Surgical History: Yes Neuro Surgical History: No Pertinent History Cardiac: Cardiac Catheterization, Cardiac Stent Respiratory: No Pertinent History Gastrointestinal: No Pertinent History, Bowel Surgery Genitourinary: No Pertinent History Musculoskeletal: No Pertinent History Male Surgical History: No Pertinent History Other Surgical History: Cardiac stents placed in 2001. bowel resection 12/28/20 for bowel obstruction - Social History Smoking Status: Never smoker Exposure to second hand smoke: No Drug Use: none Patient Lives Alone: No - Nursing Vital Signs Nursing Vital Signs: Initial Vital Signs Temperature 97.3 F 01/19/21 17:12 Pulse Rate 77 01/19/21 17:12 Respiratory Rate 16 01/19/21 17:12 Blood Pressure 133/81 01/19/21 17:12 O2 Sat by Pulse Oximetry 100 01/19/21 17:12 Pain Scale Pain Intensity 4 - Physical Exam General Appearance: no apparent distress, alert Eye Exam: PERRL/EOMI, eyes nml inspection Ears, Nose, Throat Exam: normal ENT inspection, pharynx normal, moist mucous membranes Neck Exam: normal inspection, non-tender, supple, full range of motion Respiratory Exam: normal breath sounds, lungs clear, No respiratory distress Cardiovascular Exam: regular rate/rhythm, normal heart sounds Gastrointestinal/Abdomen Exam: soft, other (Well-healed postsurgical scar. There is some residual ecchymosis around the scar.), No tenderness, No mass Back Exam: normal inspection, normal range of motion, No CVA tenderness, No vertebral tenderness Extremity Exam: normal inspection, normal range of motion, pelvis stable Neurologic Exam: alert, oriented x 3, cooperative, normal mood/affect, sensation nml, No motor deficits Skin Exam: normal color, warm, dry SpO2 Interpretation: normal SpO2: 100 O2 Delivery: Room Air - Course Nursing assessment & vital signs reviewed: Yes Ordered Tests: Active Orders 24 hr Category Date Time Status EKG-ER Only STAT Care 01/19/21 17:37 Active IV Insertion STAT Care 01/19/21 17:37 Active ABDOMEN AND PELVIS W CONTRAST [CT] Stat Exams 01/19/21 17:37 Taken CBC W DIFF Stat Lab 01/19/21 18:00 Completed CMP Stat Lab 01/19/21 18:00 Completed LIPASE Stat Lab 01/19/21 18:00 Completed TROPONIN Q3H Lab 01/19/21 18:00 Completed TROPONIN Q3H Lab 01/19/21 21:18 Received TROPONIN Q3H Lab 01/19/21 23:45 Ordered TROPONIN Q3H Lab 01/20/21 02:45 Ordered TROPONIN Q3H Lab 01/20/21 05:45 Ordered UA W/RFX UR CULTURE Stat Lab 01/19/21 18:53 Completed Medication Summary Generic Name Dose Route Start Last Admin Trade Name Tom PRN Reason Stop Dose Admin Sodium Chloride 1,000 mls @ 100 mls/hr 01/19/21 17:45 01/19/21 17:44 Sodium Chloride 0.9% 1000 Ml IV 02/18/21 17:44 100 mls/hr .Q10H ABI Administration Discontinued Medications Generic Name Dose Route Start Last Admin Trade Name Emigdioq PRN Reason Stop Dose Admin Ondansetron HCl Confirm 01/19/21 18:05 Zofran Odt 4 Mg Administered 01/19/21 18:06 Dose 4 mg .ROUTE .STK-MED ONE Ondansetron HCl 4 mg 01/19/21 18:07 01/19/21 18:08 Zofran Odt 4 Mg PO 01/19/21 18:08 4 mg STAT ONE Administration Lab/Rad Data: Laboratory Result Diagrams 01/19/21 18:00 01/19/21 18:00 Laboratory Results 01/19/21 01/19/21 01/19/21 Range/Units 18:53 18:00 18:00 WBC (4.0-10.5) K/mm3 RBC (4.1-5.6) M/mm3 Hgb (12.5-18.0) gm/dl Hct (42-50) % MCV (78-100) fl MCH (26-32) pg MCHC (32-36) g/dl RDW (11.5-14.0) % Plt Count (150-450) K/mm3 MPV (7.5-11.0) fl Gran % (36.0-66.0) % Eos # (Auto) (0-0.5) Absolute Lymphs (auto) (1.0-4.6) Absolute Monos (auto) (0.0-1.3) Lymphocytes % (24.0-44.0) % Monocytes % (0.0-12.0) % Eosinophils % (0.00-5.0) % Basophils % (0.0-0.4) % Absolute Granulocytes (1.4-6.9) Basophils # (0-0.4) Sodium 130 L (137-145) mmol/L Potassium 4.8 (3.5-5.1) mmol/L Chloride 91 L (98-107) mmol/L Carbon Dioxide 35 H (22-30) mmol/L Anion Gap 9.4 (5-15) MEQ/L BUN 13 (9-20) mg/dL Creatinine 0.97 (0.66-1.25) mg/dL Estimated GFR > 60.0 ML/MIN Glucose 142 H (74-106) mg/dL Calcium 8.9 (8.4-10.2) mg/dL Total Bilirubin 0.40 (0.2-1.3) mg/dL AST 24 (17-59) U/L ALT 19 (0-50) U/L Alkaline Phosphatase 69 (38-126) U/L Troponin I 0.021 (0.000-0.034) ng/mL Serum Total Protein 6.6 (6.3-8.2) g/dL Albumin 3.6 (3.5-5.0) g/dL Lipase 22 L (23-300) U/L Urine Color YELLOW (YELLOW) Urine Appearance CLEAR (CLEAR) Urine pH 7.0 (5-6) Ur Specific [place] 1.044 (1.005-1.025) Urine Protein 30 (Negative) Urine Ketones NEGATIVE (NEGATIVE) Urine Blood NEGATIVE (0-5) Juan J/ul Urine Nitrite NEGATIVE (NEGATIVE) Urine Bilirubin NEGATIVE (NEGATIVE) Urine Urobilinogen 2 (0-1) mg/dL Ur Leukocyte Esterase NEGATIVE (NEGATIVE) Urine WBC (Auto) 0-2 (0-5) /HPF Urine RBC (Auto) NONE (0-2) /HPF U Epithel Cells (Auto) NONE (FEW) /HPF Urine Bacteria (Auto) NONE (NEGATIVE) /HPF Urine Mucus (Auto) SLIGHT (NEGATIVE) /HPF Urine Culture Reflexed NO (NO) Urine Glucose NEGATIVE (NEGATIVE) mg/dL Slides for Path Review 01/19/21 Range/Units 18:00 WBC 6.0 (4.0-10.5) K/mm3 RBC 3.69 L (4.1-5.6) M/mm3 Hgb 12.1 L (12.5-18.0) gm/dl Hct 38.4 L (42-50) % MCV 104.1 H (78-100) fl MCH 32.8 H (26-32) pg MCHC 31.5 L (32-36) g/dl RDW 12.6 (11.5-14.0) % Plt Count 291 (150-450) K/mm3 MPV 11.4 H (7.5-11.0) fl Gran % 90.6 H (36.0-66.0) % Eos # (Auto) 0.01 (0-0.5) Absolute Lymphs (auto) 0.29 L (1.0-4.6) Absolute Monos (auto) 0.25 (0.0-1.3) Lymphocytes % 4.8 L (24.0-44.0) % Monocytes % 4.2 (0.0-12.0) % Eosinophils % 0.2 (0.00-5.0) % Basophils % 0.2 (0.0-0.4) % Absolute Granulocytes 5.43 (1.4-6.9) Basophils # 0.01 (0-0.4) Sodium (137-145) mmol/L Potassium (3.5-5.1) mmol/L Chloride (98-107) mmol/L Carbon Dioxide (22-30) mmol/L Anion Gap (5-15) MEQ/L BUN (9-20) mg/dL Creatinine (0.66-1.25) mg/dL Estimated GFR ML/MIN Glucose (74-106) mg/dL Calcium (8.4-10.2) mg/dL Total Bilirubin (0.2-1.3) mg/dL AST (17-59) U/L ALT (0-50) U/L Alkaline Phosphatase (38-126) U/L Troponin I (0.000-0.034) ng/mL Serum Total Protein (6.3-8.2) g/dL Albumin (3.5-5.0) g/dL Lipase (23-300) U/L Urine Color (YELLOW) Urine Appearance (CLEAR) Urine pH (5-6) Ur Specific [place] (1.005-1.025) Urine Protein (Negative) Urine Ketones (NEGATIVE) Urine Blood (0-5) Juan J/ul Urine Nitrite (NEGATIVE) Urine Bilirubin (NEGATIVE) Urine Urobilinogen (0-1) mg/dL Ur Leukocyte Esterase (NEGATIVE) Urine WBC (Auto) (0-5) /HPF Urine RBC (Auto) (0-2) /HPF U Epithel Cells (Auto) (FEW) /HPF Urine Bacteria (Auto) (NEGATIVE) /HPF Urine Mucus (Auto) (NEGATIVE) /HPF Urine Culture Reflexed (NO) Urine Glucose (NEGATIVE) mg/dL Slides for Path Review YES - Progress Progress: improved Progress Note: Patient reassessed. He feels well. Pain minimal at this time. Patient tolerated PO. Case discussed with patient's surgeon Dr. Sparrow who agrees with disposition She will have Andressa follow up with patient in the morning for a follow up visit. Patient requesting discharge. Sodium 130. IVF infused. Patient will follow up as described. 01/19/21 21:55 Counseled pt/family regarding: lab results, diagnosis, need for follow-up, rad results - Departure Departure Disposition: Home Clinical Impression: Hyponatremia, Abdominal pain, Diverticulosis, Enteritis Condition: Stable Critical Care Time: No Referrals: JAISON GONSALEZ MD [Primary Care Provider] - Additional Instructions: Discharge/Care Plan MATTHEW CORRAL BLAIR was seen on 01/19/21 in the Emergency Room. The patient was counseled regarding Diagnosis,Lab results, Imaging studies, need for follow up and when to return to the Emergency Room. Prescriptions given: Discharge Note I have spoken with the patient and/or caregivers. I have explained the patient's condition, diagnosis and treatment plan based on the information available to me at this time. I have answered the patient's and/or caregiver's questions and ad dressed any concerns. The patient and/or caregivers have as good understanding of the patient's diagnosis, condition and treatment plan as can be expected at this point. The vital signs have been stable. The patient's condition is stable and appropriate for discharge from the emergency department. The patient will pursue further outpatient evaluation with the primary care physician or other designated or consulting physician as outlined in the discharge instructions. The patient and/or caregivers are agreeable to this plan of care and follow-up instructions have been explained in detail. The patient and/or caregivers have received these instruction. The patient/and or caregivers are aware that any significant change in condition or worsening of symptoms should prompt an immediate return to this or the closest emergency department or call 911.
[2021-01-19 19:20] LABS: Appearance CLEAR (CLEAR); Bilirubin NEGATIVE (NEGATIVE); Blood NEGATIVE Ery/ul (0-5); Glucose NEGATIVE (NEGATIVE); Ketones NEGATIVE (NEGATIVE); Leukocyte Esterase NEGATIVE (NEGATIVE); Mucus SLIGHT /HPF (NEGATIVE); Nitrite NEGATIVE (NEGATIVE); Protein,Urine Dip 30 (Negative); Specific Gravity 1.044 (1.005-1.025); Urobilinogen 2 mg/dL (0-1); WBC 0-2 /HPF (0-5)
[2021-01-19 20:37] VITALS: O2SAT 100
[2021-01-19 21:45] VITALS: BP 113/65; PULSE 62
[2021-01-19 21:49] LABS: Slide Review 1 YES
--- NOTE | 2021-01-20 23:09 | XRAY ---
Exam: CT of the abdomen and pelvis with IV contrast from 01/19/2021. CTDI: 8.74 mGy Comparison: CT of the abdomen and pelvis without IV contrast from 01/15/2021. Indication: 75-year-old male with generalized abdominal pain and flank pain associated with some nausea. The patient states that he had bowel surgery on December 28, 2020 for a bowel obstruction. Technique: Post-IV contrast axial images were obtained through the abdomen and pelvis during automated injection of 80 ML's of Isovue 370 contrast material. Reconstructed coronal and sagittal images were created and reviewed. Delayed axial images were obtained to the abdomen and pelvis. Findings: The visualized lung bases reveal extensive bibasilar interstitial scarring with areas of bronchiectasis and some peripheral honeycombing. These findings are likely due to pulmonary fibrosis. Three-vessel coronary artery vascular calcification is again seen. The heart size is not enlarged. There appears to be a minimal hiatal hernia. A mild to moderate amount of fluid is seen within the gastric fundus. The liver is of normal size and is remarkable for a few scattered calcified granulomas. There is a suggestion of a minimal amount of intraperitoneal fluid adjacent to the dome of the right hepatic lobe. For example, see coronal image #39. This may have been present on the prior study from 01/15/2021, but is easier to see on today's post-IV contrast study. I see no other evidence of free intraperitoneal fluid or free intraperitoneal air within the abdomen or pelvis. The gallbladder is distended and reveals no dense calcifications. The spleen is relatively small reveals numerous calcified granulomas. The pancreas appears grossly unremarkable. The adrenal glands appear normal size and configuration. Both kidneys function and reveal no mass or hydronephrosis. A tortuous, calcified abdominal aorta is seen. No abdominal aortic aneurysm or abnormal retroperitoneal lymphadenopathy is seen. No ventral abdominal wall hernia is seen. The bowel appears nonobstructed. Apparent surgical suture material is seen within the small bowel in the upper pelvis in the midline. The cecum appears to be located within the right upper quadrant. Some scattered stool is seen. Marked sigmoid colon diverticulosis without evidence of acute diverticulitis is seen. The urinary bladder wall appears slightly thickened. This could be due to bladder wall hypertrophy. Correlate clinically to exclude cystitis. The seminal vesicles and prostate gland are unremarkable except for minimal enlargement of the prostate gland. No other pelvic soft tissue mass or abnormal pelvic lymphadenopathy is seen. The skeleton reveals moderate lower thoracic spondylosis as well as lumbar spondylosis. No acute fracture or bone destruction is seen. Lower lumbar facet joint arthropathy is seen. Impression: 1. Evidently, the patient is status post recent bowel surgery. There is some surgical suture material within the small bowel located within the upper pelvis near near the midline, apparently due to anastomosis. I see no bowel obstruction. There is no free air. 2. However, I believe there is a tiny amount of free intraperitoneal fluid abutting the superior aspect of the right hepatic lobe. This may have been present on the prior study, but it is easier to see on today's post-IV contrast exam. 3. Extensive sigmoid colon diverticulosis without evidence of diverticulitis. This is unchanged. 4. Severe bibasilar pulmonary fibrosis is again seen. There also appears to be bronchiectasis. 5. Mild urinary bladder wall thickening which could be due to bladder wall hypertrophy, as the prostate gland is slightly enlarged. Correlate clinically to exclude cystitis.
== END 2021-01-19 22:16 | disposition home or self-care (01) ==
LOC: ED 16:41
DX: E87.1 Hypo-osmolality and hyponatremia (principal); R10.9 Unspecified abdominal pain; K57.90 Diverticulosis of intestine, part unspecified, without perforation or abscess without bleeding; K52.9 Noninfective gastroenteritis and colitis, unspecified; I50.9 Heart failure, unspecified; I10 Essential (primary) hypertension; M19.90 Unspecified osteoarthritis, unspecified site; Z79.899 Other long term (current) drug therapy
CPT/HCPCS: 36415; 74177; 80053; 81001; 83690; 84484; 85025; 93005; 99284; Q0162

== ENCOUNTER 2021-03-12 23:14 | Emergency (ER) | payer MEDICARE, OTHER ==
[2021-03-12] MEDS ORDERED: Zofran 4 MG/2 ML VIAL IV ONE (23:59)
[2021-03-12] MEDS ORDERED: SUBLIMAZE 100 MCG/2 ML IV ONE (23:59)
[2021-03-13 00:08] LABS: Absolute Neutrophil Ct (ANC) 9.28 (1.4-6.9); BASOPHIL % 0.2 % (0.0-0.4); Basophil (Absolute #) 0.02 (0-0.4); Eosinophil % 0.1 % (0.00-5.0); Eosinophil (Absolute #) 0.01 (0-0.5); Hematocrit 43.6 % (42-50); Hemoglobin 13.9 gm/dl (12.5-18.0); Lymphocyte (Absolute #) 0.58 (1.0-4.6); Lymphocytes % 5.6 % (24.0-44.0); Mean Cell Volume 101.2 fl (78-100); Mean Corpuscular Hemoglobin 32.3 pg (26-32); Mean Corpuscular Hgb Concent. 31.9 g/dl (32-36); Mean Platelet Volume 10.5 fl (7.5-11.0); Monocyte (Absolute #) 0.49 (0.0-1.3); Monocytes % 4.7 % (0.0-12.0); Neutrophil % 89.4 % (36.0-66.0); Platelet Count 236 K/mm3 (150-450); Red Blood Count 4.31 M/mm3 (4.1-5.6); Red Cell Distribution Width 12.2 % (11.5-14.0); White Blood Count 10.4 K/mm3 (4.0-10.5)
[2021-03-13] MEDS ORDERED: SUBLIMAZE 100 MCG/2 ML ONE ×2 (00:10→01:06)
[2021-03-13] MEDS ORDERED: Zofran 4 MG/2 ML VIAL ONE (00:10)
[2021-03-13 00:22] LABS: ALBUMIN 4.1 g/dL (3.5-5.0); ALKALINE PHOSPHATASE 85 U/L (38-126); AMYLASE 123 U/L (30-110); ANION GAP 12.7 MEQ/L (5-15); BLOOD UREA NITROGEN 20 mg/dL (9-20); CHLORIDE 91 mmol/L (98-107); Calcium 9.1 mg/dL (8.4-10.2); Carbon Dioxide 33 mmol/L (22-30); Creatinine 1 1.02 mg/dL (0.66-1.25); EST GLOMERULAR FILTRATION RATE > 60.0 ML/MIN; Glucose 206 mg/dL (74-106); LIPASE 238 U/L (23-300); Potassium 4.3 mmol/L (3.5-5.1); SGOT/AST 24 U/L (17-59); SGPT/ALT 18 U/L (0-50); SODIUM 132 mmol/L (137-145); Total Protein 7.2 g/dL (6.3-8.2)
--- NOTE | 2021-03-13 00:27 | ERPHSYRPT ---
- History of Present Illness Historian: patient Patient Subjective Stated Complaint: "My stomach and back hurt." Triage Nursing Assessment: patient reported abdominal pain onset this afternoon described as severe crapming. history of bowel resection in december d/t obcstruction. has taken ondansetron and oxycodone without relief. Reported multiple episodes of vomiting. Denied constipation/diarrhea. Symmetrical chest expansion. heart tones regular/clear. Lungs vesicular throughout all collins. Abd omen with healed surgical scar and ecchymosis. Tenderness upon palpation. bowel sounds present. Physician History: 75 yo wm who had a laparotomy for SBO in 12/29 presents w generalized abdominal pain described as cramping since 15:00 today. Pain is rated 6/10 at present but has been up to an 8/10. Nothing makes the pain better or worse. He has had N/V wo diarrhea/hematemesis/melena/hematochezia/chest pain/dyspnea/fever/dysuria/hematuria. Timing/Duration: today Activities at Onset: rest Quality: cramping Abdominal Pain Onset Location: generalized abdomen Pain Radiation: no radiation Severity of Pain-Max: moderate Severity of Pain-Current: moderate Modifying Factors: Improves With: nothing Previous symptoms: same symptoms as today Allergies/Adverse Reactions: No Known Drug Allergies Allergy (Verified 03/12/21 23:29) Home Medications: Albuterol Sulfate [Proair Respiclick] 90 mcg IH Q6H 12/27/20 [History] Furosemide [Lasix] 20 mg PO DAILY 12/27/20 [History] Sacubitril/Valsartan [Entresto 49 mg-51 mg Tablet] 1 each PO BID 12/27/20 [History] predniSONE [Prednisone] 10 mg PO DAILY 12/27/20 [History] Bisacodyl [Dulcolax] 10 mg RC DAILY PRN PRN 01/19/21 [History] Oxycodone HCl 5 mg PO BID PRN 01/19/21 [History] Aspirin 1 tab PO DAILY 03/12/21 [History] Atorvastatin Calcium 1 tab PO DAILY 03/12/21 [History] Hx Tetanus, Diphtheria Vaccination/Date Given: No Hx Influenza Vaccination/Date Given: Yes Hx Pneumococcal Vaccination/Date Given: Yes Travel Risk - International Travel Have you traveled outside of the country in past 3 weeks: No - Coronavirus Screening Are you exhibiting any of the following symptoms?: No Close contact with a COVID-19 positive Pt in past 14-21 Days: No - Vaccine Status Have you recieved a Covid-19 vaccination: Yes 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: [email or web address] - Vaccination Dates Date of 2cond Vaccination (if applicable): none Comment: Worse symptoms following the initial shot - Review of Systems Constitutional: No Symptoms Eyes: No Symptoms Ears, Nose, & Throat: No Symptoms Respiratory: No Symptoms Cardiac: No Symptoms Abdominal/Gastrointestinal: No Symptoms, Abdominal Pain, Nausea, Vomiting Genitourinary Symptoms: No Symptoms Musculoskeletal: No Symptoms Skin: No Symptoms Neurological: No Symptoms Psychological: No Symptoms Endocrine: No Symptoms Hematologic/Lymphatic: No Symptoms Immunological/Allergic: No Symptoms - Past Medical History Pertinent Past Medical History: Yes Neurological History: No Pertinent History ENT History: Other Cardiac History: Angina, Congestive Heart Failure, Hypertension, Other Respiratory History: No Pertinent History Endocrine Medical History: No Pertinent History Musculoskeletal History: Arthritis GI Medical History: No Pertinent History, Other History: No Pertinent History Psycho-Social History: No Pertinent History Male Reproductive Disorders: Prostate Problems Other Medical History: Menieres Disease. Enlarged prostate. pulmonary fibrosis. Bowel obstruction - Past Surgical History Past Surgical History: Yes Neuro Surgical History: No Pertinent History Cardiac: Cardiac Catheterization, Cardiac Stent Respiratory: No Pertinent History Gastrointestinal: No Pertinent History, Bowel Surgery Genitourinary: No Pertinent History Musculoskeletal: No Pertinent History Male Surgical History: No Pertinent History Other Surgical History: Cardiac stents placed in 2001. bowel resection 12/28/20 for bowel obstruction - Social History Smoking Status: Never smoker Exposure to second hand smoke: No Drug Use: none Patient Lives Alone: No Significant Family History: no pertinent family hx - Nursing Vital Signs Nursing Vital Signs: Initial Vital Signs Pulse Rate 84 03/12/21 23:15 Respiratory Rate 24 03/12/21 23:15 Blood Pressure 148/98 03/12/21 23:15 O2 Sat by Pulse Oximetry 100 03/12/21 23:15 Pain Scale Pain Intensity 6 - Physical Exam General Appearance: no apparent distress Eye Exam: PERRL/EOMI, eyes nml inspection Ears, Nose, Throat Exam: normal ENT inspection, TMs normal, pharynx normal, moist mucous membranes Neck Exam: normal inspection, non-tender, supple, full range of motion, No meningismus, No mass, No Brudzinski, No Kernig's Respiratory Exam: airway intact, crackles/rales (Rales throughout B lungs due to pulmonary fibrosis), No respiratory distress Cardiovascular Exam: regular rate/rhythm, normal heart sounds, No murmur Gastrointestinal/Abdomen Exam: tenderness (Mild diffuse TTP wo guarding or rebound), distention Back Exam: normal inspection, normal range of motion, No CVA tenderness Extremity Exam: normal inspection, normal range of motion Neurologic Exam: alert, oriented x 3, cooperative, 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 as tested, normal mood/affect, sensation nml Skin Exam: normal color, warm, dry, No rash Lymphatic Exam: No adenopathy SpO2 Interpretation: normal SpO2: 100 O2 Delivery: Nasal Cannula - Course Nursing assessment & vital signs reviewed: Yes - CT Exams Abdomen/Pelvis CT Interpretation: Discussed w/radiologist (Acute mesenteric ischemia of SMA distritution), Tele-radiologist Report Ordered Tests: Active Orders 24 hr Category Date Time Status ABDOMEN AND PELVIS W CONTRAST [CT] Stat Exams 03/13/21 00:59 Taken AMYLASE Stat Lab 03/13/21 00:05 Completed CBC W DIFF Stat Lab 03/13/21 00:05 Completed CMP Stat Lab 03/13/21 00:05 Completed LIPASE Stat Lab 03/13/21 00:05 Completed TROPONIN Q3H Lab 03/13/21 00:08 Completed TROPONIN Q3H Lab 03/13/21 03:06 Completed UA W/RFX UR CULTURE Stat Lab 03/13/21 00:00 Completed Medication Summary Discontinued Medications Generic Name Dose Route Start Last Admin Trade Name Tom PRN Reason Stop Dose Admin Fentanyl Citrate 50 mcg 03/12/21 23:59 03/13/21 00:11 Sublimaze 100 Mcg/2 Ml IV 03/13/21 00:00 50 mcg STAT ONE Administration Fentanyl Citrate Confirm 03/13/21 00:10 Sublimaze 100 Mcg/2 Ml Administered 03/13/21 00:11 Dose 100 mcg .ROUTE .STK-MED ONE Fentanyl Citrate 50 mcg 03/13/21 01:05 03/13/21 01:08 Sublimaze 100 Mcg/2 Ml IV 03/13/21 01:06 50 mcg STAT ONE Administration Fentanyl Citrate Confirm 03/13/21 01:06 Sublimaze 100 Mcg/2 Ml Administered 03/13/21 01:07 Dose 100 mcg .ROUTE .STK-MED ONE Hydromorphone HCl 0.5 mg 03/13/21 02:34 03/13/21 02:48 Hydromorphone 1 Mg/Ml Injection IV 03/13/21 02:35 0.5 mg STAT ONE Administration Hydromorphone HCl Confirm 03/13/21 02:37 Hydromorphone 1 Mg/Ml Injection Administered 03/13/21 02:38 Dose 1 mg .ROUTE .STK-MED ONE Hydromorphone HCl 1 mg 03/13/21 03:46 03/13/21 03:59 Hydromorphone 1 Mg/Ml Injection IV 03/13/21 03:47 1 mg STAT ONE Administration Hydromorphone HCl Confirm 03/13/21 03:54 Hydromorphone 1 Mg/Ml Injection Administered 03/13/21 03:55 Dose 1 mg .ROUTE .STK-MED ONE Ondansetron HCl 4 mg 03/12/21 23:59 03/13/21 00:11 Zofran 4 Mg/2 Ml Vial IV 03/13/21 00:00 4 mg STAT ONE Administration Ondansetron HCl Confirm 03/13/21 00:10 Zofran 4 Mg/2 Ml Vial Administered 03/13/21 00:11 Dose 4 mg .ROUTE .STK-MED ONE Lab/Rad Data: Laboratory Result Diagrams 03/13/21 00:05 03/13/21 00:05 Laboratory Results 03/13/21 03/13/21 03/13/21 Range/Units 03:06 00:08 00:05 WBC (4.0-10.5) K/mm3 RBC (4.1-5.6) M/mm3 Hgb (12.5-18.0) gm/dl Hct (42-50) % MCV (78-100) fl MCH (26-32) pg MCHC (32-36) g/dl RDW (11.5-14.0) % Plt Count (150-450) K/mm3 MPV (7.5-11.0) fl Gran % (36.0-66.0) % Eos # (Auto) (0-0.5) Absolute Lymphs (auto) (1.0-4.6) Absolute Monos (auto) (0.0-1.3) Lymphocytes % (24.0-44.0) % Monocytes % (0.0-12.0) % Eosinophils % (0.00-5.0) % Basophils % (0.0-0.4) % Absolute Granulocytes (1.4-6.9) Basophils # (0-0.4) Sodium 132 L (137-145) mmol/L Potassium 4.3 (3.5-5.1) mmol/L Chloride 91 L (98-107) mmol/L Carbon Dioxide 33 H (22-30) mmol/L Anion Gap 12.7 (5-15) MEQ/L BUN 20 (9-20) mg/dL Creatinine 1.02 (0.66-1.25) mg/dL Estimated GFR > 60.0 ML/MIN Glucose 206 H (74-106) mg/dL Calcium 9.1 (8.4-10.2) mg/dL Total Bilirubin 0.20 (0.2-1.3) mg/dL AST 24 (17-59) U/L ALT 18 (0-50) U/L Alkaline Phosphatase 85 (38-126) U/L Troponin I 0.064 H* 0.020 (0.000-0.034) ng/mL Serum Total Protein 7.2 (6.3-8.2) g/dL Albumin 4.1 (3.5-5.0) g/dL Amylase 123 H (30-110) U/L Lipase 238 (23-300) U/L Urine Color (YELLOW) Urine Appearance (CLEAR) Urine pH (5-6) Ur Specific [place] (1.005-1.025) Urine Protein (Negative) Urine Ketones (NEGATIVE) Urine Blood (0-5) Juan J/ul Urine Nitrite (NEGATIVE) Urine Bilirubin (NEGATIVE) Urine Urobilinogen (0-1) mg/dL Ur Leukocyte Esterase (NEGATIVE) Urine WBC (Auto) (0-5) /HPF Urine RBC (Auto) (0-2) /HPF U Hyaline Cast (Auto) (0-2) /LPF U Epithel Cells (Auto) (FEW) /HPF Urine Bacteria (Auto) (NEGATIVE) /HPF Urine Mucus (Auto) (NEGATIVE) /HPF Urine Culture Reflexed (NO) Urine Glucose (NEGATIVE) mg/dL 03/13/21 03/13/21 Range/Units 00:05 00:00 WBC 10.4 (4.0-10.5) K/mm3 RBC 4.31 (4.1-5.6) M/mm3 Hgb 13.9 (12.5-18.0) gm/dl Hct 43.6 (42-50) % MCV 101.2 H (78-100) fl MCH 32.3 H (26-32) pg MCHC 31.9 L (32-36) g/dl RDW 12.2 (11.5-14.0) % Plt Count 236 (150-450) K/mm3 MPV 10.5 (7.5-11.0) fl Gran % 89.4 H (36.0-66.0) % Eos # (Auto) 0.01 (0-0.5) Absolute Lymphs (auto) 0.58 L (1.0-4.6) Absolute Monos (auto) 0.49 (0.0-1.3) Lymphocytes % 5.6 L (24.0-44.0) % Monocytes % 4.7 (0.0-12.0) % Eosinophils % 0.1 (0.00-5.0) % Basophils % 0.2 (0.0-0.4) % Absolute Granulocytes 9.28 H (1.4-6.9) Basophils # 0.02 (0-0.4) Sodium (137-145) mmol/L Potassium (3.5-5.1) mmol/L Chloride (98-107) mmol/L Carbon Dioxide (22-30) mmol/L Anion Gap (5-15) MEQ/L BUN (9-20) mg/dL Creatinine (0.66-1.25) mg/dL Estimated GFR ML/MIN Glucose (74-106) mg/dL Calcium (8.4-10.2) mg/dL Total Bilirubin (0.2-1.3) mg/dL AST (17-59) U/L ALT (0-50) U/L Alkaline Phosphatase (38-126) U/L Troponin I (0.000-0.034) ng/mL Serum Total Protein (6.3-8.2) g/dL Albumin (3.5-5.0) g/dL Amylase (30-110) U/L Lipase (23-300) U/L Urine Color YELLOW (YELLOW) Urine Appearance CLEAR (CLEAR) Urine pH 5.0 (5-6) Ur Specific [place] 1.014 (1.005-1.025) Urine Protein NEGATIVE (Negative) Urine Ketones NEGATIVE (NEGATIVE) Urine Blood NEGATIVE (0-5) Juan J/ul Urine Nitrite NEGATIVE (NEGATIVE) Urine Bilirubin NEGATIVE (NEGATIVE) Urine Urobilinogen NEGATIVE (0-1) mg/dL Ur Leukocyte Esterase NEGATIVE (NEGATIVE) Urine WBC (Auto) 0-2 (0-5) /HPF Urine RBC (Auto) NONE (0-2) /HPF U Hyaline Cast (Auto) 0-2 (0-2) /LPF U Epithel Cells (Auto) NONE (FEW) /HPF Urine Bacteria (Auto) NONE SEEN (NEGATIVE) /HPF Urine Mucus (Auto) SLIGHT (NEGATIVE) /HPF Urine Culture Reflexed NO (NO) Urine Glucose NEGATIVE (NEGATIVE) mg/dL - Progress Progress Note: 03/13/21 03:19 50umg IV Fentanyl x2 wo improvement in pain 4mg IV Zofran 0.5mg IV Dilaudid 03/13/21 03:[address] [facility] Dilaud[facility] transfer Second troponin elevated after pt transferred in ambulance. Pt had no chest pain or new dyspnea while in ER. 03/13/21 05:28 Counseled pt/family regarding: lab results, diagnosis, rad results - Departure Departure Disposition: Transfer Clinical Impression: Mesenteric ischemia due to arterial insufficiency Condition: Stable Critical Care Time: Yes Critical Care Time(excluding separately billable procedures): Critical 30-74 mins Referrals: JAISON GONSALEZ MD [Primary Care Provider] -
[2021-03-13] MEDS ORDERED: SUBLIMAZE 100 MCG/2 ML IV ONE (01:05)
[2021-03-13 01:15] LABS: Appearance CLEAR (CLEAR); Bilirubin NEGATIVE (NEGATIVE); Blood NEGATIVE Ery/ul (0-5); Glucose NEGATIVE (NEGATIVE); Hyaline Casts 0-2 /LPF (0-2); Ketones NEGATIVE (NEGATIVE); Leukocyte Esterase NEGATIVE (NEGATIVE); Mucus SLIGHT /HPF (NEGATIVE); Nitrite NEGATIVE (NEGATIVE); Protein,Urine Dip NEGATIVE (Negative); Specific Gravity 1.014 (1.005-1.025); Urobilinogen NEGATIVE mg/dL (0-1); WBC 0-2 /HPF (0-5)
[2021-03-13 01:16] LABS: Bacteria NONE SEEN /HPF (NEGATIVE)
[2021-03-13] MEDS ORDERED: Hydromorphone 1 mg/ml Injection IV ONE ×2 (02:34→03:46)
[2021-03-13] MEDS ORDERED: Hydromorphone 1 mg/ml Injection ONE ×2 (02:37→03:54)
[2021-03-13 03:20] VITALS: O2SAT 100
[2021-03-13 03:29] VITALS: BP 128/74; PULSE 74
--- NOTE | 2021-03-13 08:03 | XRAY ---
Indication: Abdomen pain. Bowel obstruction with resection in December 2020. Multiple contiguous axial images obtained through the abdomen and pelvis using 80 cc of Isovue 370 contrast. Comparison: January 19, 2021. Lung bases again demonstrates extensive fibrosis/scarring without focal infiltrate or effusion. Heart is not enlarged. Stable small hiatal hernia. Stomach and small bowel loops are mildly fluid distended with fluid leveling, with a few small bowel loops demonstrating a synchronous fluid leveling. Right abdominal small bowel loops are distended up to 3.5 cm with several left abdominal bowel loops decompressed. There is distal colonic bowel gas. Appearance is essentially unchanged on delayed imaging. Findings may represent ileus versus partial distal small bowel obstruction. No pneumatosis intestinalis or portal venous air. Intact small bowel anastomosis. Again scattered sigmoid diverticulosis with new moderate rectal fecal impaction. Again mild diffuse mesenteric stranding more than before, either mesenteric congestion versus peritonitis. New tiny perisplenic free fluid. No walled off fluid collection or free air. Stable hepatic/splenic calcified granulomas. Remaining liver, gallbladder, pancreas, adrenal glands, kidneys, ureters, and bladder are unremarkable. There remains mild scattered aortoiliac calcifications without AAA or pathologic portal. No lymphadenopathy. Osseous structures intact again with mild osteopenia, mild/moderate degenerative changes throughout the spine, and mild degenerative changes both hips. Impression: 1. New fluid distended stomach and small bowel loops with fluid leveling as detailed, ileus versus partial distal small bowel obstruction. 2. New rectal fecal impaction. 3. Increasing diffuse mesenteric stranding, mesenteric congestion versus peritonitis. New tiny perisplenic fluid may be related. 4. Incidental small hiatal hernia, extensive pulmonary fibrosis/scarring, intact small bowel anastomosis, sigmoid diverticulosis, chronic bony findings, and old granulomatous disease. Comment: Preliminary interpretation was made by C. No critical discrepancy.
== END 2021-03-13 04:15 | disposition short-term general hospital (02) ==
LOC: ED 23:14
DX: K55.1 Chronic vascular disorders of intestine (principal); K55.059 Acute (reversible) ischemia of intestine, part and extent unspecified; R10.84 Generalized abdominal pain; Z79.899 Other long term (current) drug therapy; I10 Essential (primary) hypertension; R11.2 Nausea with vomiting, unspecified
CPT/HCPCS: 36000; 36415; 74177; 80053; 81001; 82150; 83690; 84484; 85025; 96374; 96375; 96376; 99285; 99291; J1170; J2405; J3010